=== PATIENT | male | born 1995 | race Caucasian/White ===

== ENCOUNTER 2019-10-29 13:37 | Emergency (ER) | payer BC ==
[2019-10-29 17:03] LABS: ABSOLUTE EOSINOPHILS # (AUTO) 0.1 10^3/uL (0.0-0.6); ABSOLUTE MONOCYTES (AUTO) 0.5 10^3/uL (0.1-1.4); ABSOLUTE NEUT (AUTO) 4.8 10^3/uL (1.7-8.2); BASOPHILS % (AUTO) 0.6 % (0-2); EOSINOPHILS % (AUTO) 1.4 % (0-6); HEMATOCRIT 49.9 % (37.9-51.0); HEMOGLOBIN 17.5 g/dL (13.5-17.0); LYMPHOCYTES % (AUTO) 26.7 % (13-45); MEAN CORPUSCULAR HEMOGLOBIN 29.5 pg (27.0-33.4); MEAN CORPUSCULAR HGB CONC 35.1 g/dL (32.0-36.0); MEAN CORPUSCULAR VOLUME 84 fl (80-97); MONOCYTES % (AUTO) 6.6 % (3-13); PLATELET COUNT 301 10^3/uL (150-450); RED BLOOD COUNT 5.95 10^6/uL (4.35-5.55); RED CELL DISTRIBUTION WIDTH 12.4 % (11.5-14.0); SEGMENTED NEUTROPHILS % (AUTO) 64.7 % (42-78); TOTAL CELLS COUNTED % (AUTO) 100 %; WHITE BLOOD COUNT 7.5 10^3/uL (4.0-10.5)
[2019-10-29 17:11] LABS: INTERNATIONAL RATION (INR) 0.99; PROTHROMBIN TIME 13.1 SEC (11.4-15.4)
[2019-10-29 17:14] LABS: ALBUMIN 4.9 g/dL (3.5-5.0); ALKALINE PHOSPHATASE 59 U/L (38-126); ANION GAP 7 (5-19); ASPARTATE AMINO TRANSFERASE 25 U/L (17-59); BILIRUBIN,TOTAL 0.8 mg/dL (0.2-1.3); BLOOD UREA NITROGEN 13 mg/dL (7-20); CALCIUM 9.5 mg/dL (8.4-10.2); CARBON DIOXIDE 28 mmol/L (22-30); CHLORIDE 103 mmol/L (98-107); GLUCOSE 87 mg/dL (75-110); POTASSIUM 4.5 mmol/L (3.6-5.0); TOTAL PROTEIN 7.7 g/dL (6.3-8.2)
[2019-10-29 17:24] LABS: D-DIMER < 0.27 ug/mL (0.00-0.50)
--- NOTE | 2019-10-29 19:12 | ER Document Report ---
ED General - General Chief Complaint: Pain All Over Stated Complaint: BODY PAIN Time Seen by Provider: 10/29/19 18:33 Mode of Arrival: Ambulatory Information source: Patient Notes: Patient is a 24-year-old male comes emergency room with multiple somatic complaints. Patient states that he started yesterday with muscle aches and pains throughout his body. 3 days ago he had diarrhea that started out to be a light green-colored to turn to a dark yellow color the match the smiley faces in the ER room. That turned to watery diarrhea. He woke up this morning with his left side that felt numb. He actually struck his left leg with his right fist to make sure that he could make feeling of it and he did but it was a dull pain. He also states that he has had a mild headache patient states that he knows that his mother has tested positive for the COVID antibodies that she is still under quarantine and he had had contact with her approximately 1 to 2 weeks ago. Patient denies any past medical history but has a long history of OCD ADHD that he states he is refusing to take medication for. He states the only reason his pain is gotten better since being here at the emergency room as his anxiety is controlling his brain. Patient denies any suicidal homicidal ideation. - HPI Onset: Last week - 3 days ago Onset/Duration: Gradual Quality of pain: Achy, Sharp, Throbbing Severity: Moderate Pain Level: 4 Associated symptoms: Diarrhea. denies: Chills, Nonproductive cough, Nausea, Vomiting, Rhinnorhea, Sinus pain/drainage, Shortness of breath Exacerbated by: Denies Relieved by: Denies Similar symptoms previously: No Recently seen / treated by doctor: No - Related Data Allergies/Adverse Reactions: No Known Allergies Allergy (Unverified 10/29/19 16:33) Past Medical History - Social History Smoking Status: Current Every Day Smoker Cigarette use (# per day): Yes - 1 pack/day Chew tobacco use (# tins/day): No Smoking Education Provided: Yes Frequency of alcohol use: Rare Drug Abuse: Marijuana Lives with: Family Family History: Reviewed & Not Pertinent Patient has suicidal ideation: No Patient has homicidal ideation: No - Medical History Medical History: Negative Review of Systems - Review of Systems Constitutional: No symptoms reported, Weakness EENT: No symptoms reported Cardiovascular: denies: Chest pain, Palpitations, Heart racing, Orthopnea, Dyspnea, Syncope, Dizziness, Lightheaded Respiratory: No symptoms reported Gastrointestinal: Diarrhea. denies: Vomiting, Constipation Genitourinary: No symptoms reported Male Genitourinary: No symptoms reported Musculoskeletal: No symptoms reported Skin: No symptoms reported Hematologic/Lymphatic: No symptoms reported Neurological/Psychological: Anxiety -: Yes All other systems reviewed and negative Physical Exam - Vital signs Vitals: Temp Pulse Resp BP Pulse Ox 99.0 F 72 16 148/89 H 96 10/29/19 16:03 10/29/19 16:03 10/29/19 16:03 10/29/19 16:03 10/29/19 16:03 Interpretation: Hypertensive - Notes Notes: PHYSICAL EXAMINATION: GENERAL patient is a well-nourished well-developed 24-year-old male who is in no apparent stress on physical exam does display moderate amount of anxiety. He is somewhat disheveled in appearance. HEAD: Atraumatic, normocephalic. EYES: Pupils equal round and reactive to light, extraocular movements intact, sclera anicteric, conjunctiva are normal. ENT: Nares patent, oropharynx clear without exudates. Moist mucous membranes. NECK: Normal range of motion, supple without lymphadenopathy LUNGS: Breath sounds clear to auscultation bilaterally and equal. No wheezes rales or rhonchi. HEART: Regular rate and rhythm without murmurs ABDOMEN: Soft, nontender, nondistended abdomen. No guarding, no rebound. No masses appreciated. Musculoskeletal: Normal range of motion, no pitting or edema. No cyanosis. NEUROLOGICAL: Normal speech, normal gait. Normal sensory, motor exams PSYCH: Normal mood, normal affect. SKIN: Warm, Dry, normal turgor, no rashes or lesions noted. Course - Re-evaluation Re-evalutation: 10/29/19 19:13 Patient's labs turned out relatively normal. Patient smokes and he had an elevated hemoglobin hematocrit. Given patient has known contact with his mother who has tested positive for the antibodies for COVID-[address] on self quarantine and do a swab for COVID-19 himself. - Vital Signs Vital signs: Temp Pulse Resp BP Pulse Ox 99.0 F 72 16 148/89 H 96 10/29/19 16:06 10/29/19 16:03 10/29/19 16:03 10/29/19 16:03 10/29/19 16:03 - Laboratory Result Diagrams: 10/29/19 16:45 10/29/19 16:45 Laboratory results interpreted by me: 10/29/19 16:45 RBC 5.95 H Hgb 17.5 H Discharge - Discharge Clinical Impression: Upper respiratory infection Qualifiers: URI type: unspecified viral URI Qualified Code(s): J06.9 - Acute upper respiratory infection, unspecified Diarrhea Qualifiers: Diarrhea type: unspecified type Qualified Code(s): R19.7 - Diarrhea, unspecified Condition: Stable Disposition: HOME, SELF-CARE Instructions: Upper Respiratory Illness ([facility]), Viral Syndrome ([facility]), Diarrhea, Nonspecific ([facility]) Additional Instructions: HIGH BLOOD PRESSURE, NOT TREAT: When your blood pressure was taken today it was elevated. Today's reading was . We do not think you need to have your blood pressure treated today. Sometimes, stress or illness causes a temporary elevation of your blood pressure. We suggest that you get your blood pressure measured again during the next few days to see if this elevated blood pressure is more than a temporary abnormality. If your blood pressure is greater than 150/90 on each occasion, you must have treatment. Some simple things you can do to help are: If you have blood pressure medicine but aren't using it regularly, start taking it again. Get some aerobic exercise for at least 20 minutes on a daily basis. (See your doctor before beginning a new exercise program.) Eat a low-fat diet. Lose excess weight. Avoid salty foods and avoid adding salt to any of the foods you eat. Avoid diet pills, decongestants, "energizing" herbs, and other medicines that elevate blood pressure. If left untreated, hypertension greatly enhances your risk for developing heart disease and strokes. Please don't ignore this problem. FOLLOW-UP CARE: If you have been referred to a physician for follow-up care, call the physicians office for an appointment as you were instructed or within the next two days. If you experience worsening or a significant change in your symptoms, notify the physician immediately or return to the Emergency Department at any time for re-evaluation. Given you have not had contact with someone that has tested positive for the cold that antibiotics is highly suggested that you self quarantine until your symptoms have resolved and or you received the results of the test. Highly suggest that you follow-up with your primary care if you do not have one I will give you a list of a few doctors who are accepting new patients. As we also discussed should you experience increasing symptoms of shortness of breath fever or generalized malaise or continue with diffuse discomfort return to ER for a re check. Forms: Elevated Blood Pressure, Smoking Cessation Education, Return to Work
[2019-10-29 20:32] VITALS: BP 131/78
== END 2019-10-29 20:33 | disposition home or self-care (01) ==
LOC: EDBD → ER 13:37
DX: J06.9 Acute upper respiratory infection, unspecified (principal); R19.7 Diarrhea, unspecified; M79.10 Myalgia, unspecified site; R53.1 Weakness; F17.210 Nicotine dependence, cigarettes, uncomplicated; Z20.828 Contact with and (suspected) exposure to other viral communicable diseases
CPT/HCPCS: 99283; 36415; 85025; 85610; 87635; 80053; 85379; C9803